=== PATIENT | female | born 2000 | race Hispanic/Latino ===

== ENCOUNTER 2021-10-08 02:00 | Emergency (ER) | payer BC ==
[~2021-10-08] VITALS: Ht 154.9 cm; Wt 83.5 kg
[2021-10-08] MEDS ORDERED: ACETAMINOPHEN 500 MG TABLET PO ONE (02:30)
[2021-10-08 04:41] VITALS: BP 128/81
== END 2021-10-08 05:11 | disposition home or self-care (01) ==
LOC: EDH 02:00
DX: O26.891 Other specified pregnancy related conditions, first trimester (principal); R10.9 Unspecified abdominal pain; Z3A.10 10 weeks gestation of pregnancy
CPT/HCPCS: 76801